=== PATIENT | male | born 1960 | race Caucasian/White ===

== ENCOUNTER 2018-06-12 15:10 | Emergency (ER) | payer OTHER | END 2018-06-12 16:29 | disposition home or self-care (01) | LOC: M ED 15:10 | DX: S09.90XA Unspecified injury of head, initial encounter (principal); W22.8XXA Striking against or struck by other objects, initial encounter; Y92.89 Other specified places as the place of occurrence of the external cause; Y99.0 Civilian activity done for income or pay; R11.0 Nausea; R42 Dizziness and giddiness; E78.5 Hyperlipidemia, unspecified; K57.92 Diverticulitis of intestine, part unspecified, without perforation or abscess without bleeding; Z79.899 Other long term (current) drug therapy; Z79.84 Long term (current) use of oral hypoglycemic drugs | CPT/HCPCS: 70450 ==

== ENCOUNTER → 2018-12-25 | Outpatient (CLI) | payer OTHER ==
[~2018-12-25] MED LIST: ACET65TA OR; ASPI81TA63 OR; IBUP80TA; LIPI80TA; METF-877; SIMV5TAB2 OR; [UNRECOGNIZED DRUG - OTHER]
--- NOTE | 2018-12-25 15:14 | REP ---
PET/CT: History: Lung nodule. Comparisons: Comparison CT study of the chest is from November 19, 2018. TECHNIQUE: 51 minutes following the intravenous injection of a 9.97 mCi dose of F-18 FDG, three-dimensional PET scintigraphy is acquired from the skull base to the proximal thighs. Triplanar noncontrast CT scanning is acquired through the same anatomic range for attenuation correction, and image registration with scan parameters optimized to minimize radiation exposure to the patient. PET scintigraphy and CT datasets were fused and displayed on a workstation with multiplanar and projection display capability. PET/CT Findings: Head and neck soft tissues are unremarkable. There is no evidence of hilar or mediastinal lucian hypermetabolic uptake. Neither of the two noncalcified pulmonary nodules in the left upper lobe on the recent CT study are showing hypermetabolic uptake. The larger of these shows maximum standard uptake value of 1.1. In the abdomen and pelvis normal hepatic, splenic, gastrointestinal FDG accumulation is seen. No other abnormal hypermetabolic uptake is appreciated. Impression: Negative PET scintigraphy. No abnormal hypermetabolic uptake is seen in either of the two left upper lobe pulmonary nodules. Interval CT followup is advised. Electronically Signed by Luis Bravo MD 12/25/2018 08:33 P
== END ==
LOC: M PLARAD 07:46
PROVIDERS: ATTEND Family Medicine
DX: R91.8 Other nonspecific abnormal finding of lung field (principal); G47.33 Obstructive sleep apnea (adult) (pediatric)
CPT/HCPCS: 78815; A9552

== ENCOUNTER 2020-09-05 09:37 | Emergency (ER) | payer OTHER ==
[~2020-09-05] VITALS: Ht 172.7 cm; Wt 108.8 kg
[2020-09-05] MEDS ORDERED: LISI-898 PO (09:43)
--- OUTSIDE RECORDS SUMMARY | 2020-09-05 09:45 | CCD ---
Author Author [facility] Organization [facility] Address Unknown Phone Unavailable Care Team Providers Care Organic Chemistry Professor Name Role Phone SEARS, A JOSE DO Unavailable Unavailable SEARS, A JOSE DO Unavailable Unavailable SEARS, A JOSE DO Unavailable Unavailable SEARS, A JOSE DO Unavailable Unavailable SEARS, A JOSE DO Unavailable Unavailable SEARS, A JOSE DO Unavailable Unavailable SEARS, A JOSE DO Unavailable Unavailable SEARS, A JOSE DO Unavailable Unavailable SEARS, A JOSE DO Unavailable Unavailable SEARS, A JOSE DO Unavailable Unavailable SEARS, A JOSE DO Unavailable Unavailable SEARS, A JOSE DO Unavailable Unavailable SEARS, A JOSE DO Unavailable Unavailable SEARS, A JOSE DO Unavailable Unavailable SEARS, A JOSE DO Unavailable Unavailable SEARS, A JOSE DO Unavailable Unavailable SEARS, A JOSE DO Unavailable Unavailable SEARS, A JOSE DO Unavailable Unavailable SEARS, A JOSE DO Unavailable Unavailable SEARS, A JOSE DO Unavailable Unavailable SEARS, A JOSE DO Unavailable Unavailable SEARS, A JOSE DO Unavailable Unavailable SEARS, A JOSE DO Unavailable Unavailable SEARS, A JOSE DO Unavailable Unavailable SEARS, A JOSE DO Unavailable Unavailable SEARS, A JOSE DO Unavailable Unavailable SEARS, A JOSE DO Unavailable Unavailable SEARS, A JOSE DO Unavailable Unavailable SEARS, A JOSE DO Unavailable Unavailable SEARS, A JOSE DO Unavailable Unavailable SEARS, A JOSE DO Unavailable Unavailable SEARS, A JOSE DO Unavailable Unavailable SEARS, A JOSE DO Unavailable Unavailable SEARS, A JOSE DO Unavailable Unavailable SEARS, A JOSE DO Unavailable Unavailable SEARS, A JOSE DO Unavailable Unavailable SEARS, A JOSE DO Unavailable Unavailable SEARS, A JOSE DO Unavailable Unavailable SEARS, A JOSE DO Unavailable Unavailable SEARS, A JOSE DO Unavailable Unavailable SEARS, A JOSE DO Unavailable Unavailable SEARS, A JOSE DO Unavailable Unavailable SEARS, A JOSE DO Unavailable Unavailable SEARS, A JOSE DO Unavailable Unavailable SEARS, A JOSE DO Unavailable Unavailable SEARS, A JOSE DO Unavailable Unavailable Atilio, L Rosario CRIMINAL LEGAL ASSISTANT Unavailable Unavailable Atilio, L Rosario CRIMINAL LEGAL ASSISTANT Unavailable Unavailable Atilio, L Rosario CRIMINAL LEGAL ASSISTANT Unavailable Unavailable Atilio, L Rosario CRIMINAL LEGAL ASSISTANT Unavailable Unavailable Atilio, L Rosario CRIMINAL LEGAL ASSISTANT Unavailable Unavailable Atilio, L Rosario CRIMINAL LEGAL ASSISTANT Unavailable Unavailable Atilio, L Rosario CRIMINAL LEGAL ASSISTANT Unavailable Unavailable Atilio, L Rosario CRIMINAL LEGAL ASSISTANT Unavailable Unavailable Atilio, L Rosario CRIMINAL LEGAL ASSISTANT Unavailable Unavailable Atilio, L Rosario CRIMINAL LEGAL ASSISTANT Unavailable Unavailable Atilio, L Rosario CRIMINAL LEGAL ASSISTANT Unavailable Unavailable Atilio, L Rosario CRIMINAL LEGAL ASSISTANT Unavailable Unavailable Atilio, L Rosario CRIMINAL LEGAL ASSISTANT Unavailable Unavailable Atilio, L Rosario CRIMINAL LEGAL ASSISTANT Unavailable Unavailable Atilio, L Rosario CRIMINAL LEGAL ASSISTANT Unavailable Unavailable Atilio, L Rosario CRIMINAL LEGAL ASSISTANT Unavailable Unavailable Atilio, L Rosario CRIMINAL LEGAL ASSISTANT Unavailable Unavailable Atilio, L Rosario CRIMINAL LEGAL ASSISTANT Unavailable Unavailable Atilio, L Rosario CRIMINAL LEGAL ASSISTANT Unavailable Unavailable Atilio, L Rosario CRIMINAL LEGAL ASSISTANT Unavailable Unavailable Atilio, L Rosario CRIMINAL LEGAL ASSISTANT Unavailable Unavailable Atilio, L Rosario CRIMINAL LEGAL ASSISTANT Unavailable Unavailable Re-disclosure Warning The records that you are about to access may contain information from federally-assisted alcohol or drug abuse programs. If such information is present, then the following federally mandated warning applies: This information has been disclosed to you from records protected by federal confidentiality rules (42 CFR part 2). The federal rules prohibit you from making any further disclosure of this information unless further disclosure is expressly permitted by the written consent of the person to whom it pertains or as otherwise permitted by 42 CFR part 2. A general authorization for the release of medical or other information is NOT sufficient for this purpose. The Federal rules restrict any use of the information to criminally investigate or prosecute any alcohol or drug abuse patient.The records that you are about to access may contain highly sensitive health information, the redisclosure of which is protected by Article 27-F of the [facility] Public Health law. If you continue you may have access to information: Regarding HIV / AIDS; Provided by facilities licensed or operated by the [facility] Office of Mental Health; or Provided by the [facility] Office for People With Developmental Disabilities. If such information is present, then the following [facility] mandated warning applies: This information has been disclosed to you from confidential records which are protected by state law. State law prohibits you from making any further disclosure of this information without the specific written consent of the person to whom it pertains, or as otherwise permitted by law. Any unauthorized further disclosure in violation of state law may result in a fine or shelter sentence or both. A general authorization for the release of medical or other information is NOT sufficient authorization for further disc losure. Family History Family Member Name Family Member Gender Family Member Status Date o f Status Description Data Source(s) Unknown Unknown Problem [facility] ([facility]) Encounters Encounter Providers Location Date Indications Data Source(s ) Outpatient Referrer: Rosario Trimble NP 10/21/2019 09:23:00 AM EDT [facility] Outpatient Referrer: Rosario Trimble NP 09/23/2019 03:35:00 PM EDT [facility] Outpatient Referrer: JOSE ROSE DO 09/23/2019 03:26:00 PM EDT [facility] Insurance Providers Payer name Policy type / Coverage type Policy ID Covered alliance party ID Covered alliance party's relationship to andrew Policy Andrew Plan Information EAST HUMANA SP HUMANA [place] O [id number] S [place] DEPT [place] LAB[place] SP Prime Commercial [id number] Self [id number] (2018) Commercial [id number] Self EAST HUMANA [id number] SP [id number] [place] DEPT [place] LAB[place] SP [place] DEPART [place] LABOR O [id number] S [id number] [place] SP [facility] Federal Service Commercial Self [place] [place] P [id number] S [id number] Results ID Date Data Source [id number] 10/27/2019 12:00:00 AM EDT [facility] Rosario Trimble Anp Rnnp Patient Name: ODETTE [id number] Date of : 1960[place] [address] Date of Exam: 10/27/2019#: Fax: [phone] EXAM: CT THORAX WITHOUT CONTRASTCLINICAL INFORMATION: Followup lung nodules.Comparison multiples, the latest 05/27/2019.[address] low dose helical CT scanning was obtained throughout the thoraxwithout intravenous contrast along with sagittal and coronalreconstructions.The mediastinum and pulmonary kvng are unchanged. There is no evidence ofa mass or adenopathy. The imaged upper abdomen now shows diffuse lowdensity throughout the hepatic parenchyma consistent with fattyinfiltration. There are otherwise no significant changes. The imagedosseous structures are unchanged. There are no pleural or pericardialeffusions.Evaluation of the lung trinidad again shows numerable nodules, all appearstable, and the largest again seen in the lingula measuring 1.1 cm. Thesurface of this nodule has not changed significantly. No definite newabnormal nodules, masses, or opacities have developed.IMPRESSION:1. Stable lung trinidad as described above. According to the revisedFleischner Society criteria, the nodules can now be categorized as Category2 nodules, however, that particularly is in regards to nodules measuringless than a centimeter. There is no revised Fleischner Society criteria indown grading nodules over a centimeter in size. The fact that the noduleshave remained stable particularly the 1.1 cm sized nodule in the lingula,is reassuring, however, I will recommend an additional three monthfollowup.2. There is fatty infiltration of the liver.Accredited by the [employer] in [place] Sheets/Juan solis for referring ODETTE GÓMEZ to our office. Electronically Signed - KHUSHBU NAGEL DO 10/27/19 15:32 Name Value Range Interpretation Code Description Data Julia rce(s) Supporting Document(s) ID Date Data Source [id number] 10/02/2019 10:50:00 AM EDT [facility] Name Value Range Interpretation Code Description Data Julia rce(s) Supporting Document(s) SARS CORONAVIRUS 2 RNA [facility] This lab was ordered by [facility] Laboratory and reported by [facility]. Procedure
--- OUTSIDE RECORDS SUMMARY | 2020-09-05 10:27 | CCD ---
Author Author [facility] Organization [facility] Address Unknown Phone Unavailable Care Team Providers Care Filler Block Inserter Remover Name Role Phone SEARS, A JOSE DO [...] A JOSE DO Unavailable Unavailable SEARS, A JSOE DO Unavailable Unavailable SEARS, A JOSE DO [...] JOSE DO Unavailable Unavailable Atilio, L Rosario GRAPHIC DESIGN PROFESSOR Unavailable Unavailable Atilio, L Rosario GRAPHIC DESIGN PROFESSOR Unavailable Unavailable Atilio, L Rosario GRAPHIC DESIGN PROFESSOR Unavailable Unavailable Atilio, L Rosario GRAPHIC DESIGN PROFESSOR Unavailable Unavailable Atilio, L Rosario GRAPHIC DESIGN PROFESSOR Unavailable Unavailable Atilio, L Rosario GRAPHIC DESIGN PROFESSOR Unavailable Unavailable Atilio, L Rosario GRAPHIC DESIGN PROFESSOR Unavailable Unavailable Atilio, L Rosario GRAPHIC DESIGN PROFESSOR Unavailable Unavailable Atilio, L Rosario GRAPHIC DESIGN PROFESSOR Unavailable Unavailable Atilio, L Rosario GRAPHIC DESIGN PROFESSOR Unavailable Unavailable Atilio, L Rosario GRAPHIC DESIGN PROFESSOR Unavailable Unavailable Atilio, L Rosario GRAPHIC DESIGN PROFESSOR Unavailable Unavailable Atilio, L Rosario GRAPHIC DESIGN PROFESSOR Unavailable Unavailable Atilio, L Rosario GRAPHIC DESIGN PROFESSOR Unavailable Unavailable Atilio, L Rosario GRAPHIC DESIGN PROFESSOR Unavailable Unavailable Atilio, L Rosario GRAPHIC DESIGN PROFESSOR Unavailable Unavailable Atilio, L Rosario GRAPHIC DESIGN PROFESSOR Unavailable Unavailable Atilio, L Rosario GRAPHIC DESIGN PROFESSOR Unavailable Unavailable Atilio, L Rosario GRAPHIC DESIGN PROFESSOR Unavailable Unavailable Atilio, L Rosario GRAPHIC DESIGN PROFESSOR Unavailable Unavailable Atilio, L Rosario GRAPHIC DESIGN PROFESSOR Unavailable Unavailable Atilio, L Rosario GRAPHIC DESIGN PROFESSOR Unavailable Unavailable Re-disclosure Warning The records that [...] is protected by Article 27-F of the [facility] Public Health law. If you continue you may have access to information: Regarding HIV / AIDS; Provided by facilities licensed or operated by the [facility] Office of Mental Health; or Provided by the [facility] Office for People With Developmental Disabilities. If such information is present, then the following [facility] mandated warning applies: This information has been [...] law may result in a fine or fpc sentence or both. A general authorization for the release of medical or other information is NOT sufficient authorization for further disc losure. Family History Family Member Name Family Member Gender Family Member Status Date o f Status Description Data Source(s) Unknown Unknown Problem [facility] ([facility]) Encounters Encounter Providers Location Date Indications Data Source(s ) Outpatient Referrer: Rosario Trimble NP 10/21/2019 09:23:00 AM EDT [facility] Outpatient Referrer: Rosario Trimble NP 09/23/2019 03:35:00 PM EDT [facility] Outpatient Referrer: JOSE ROSE DO 09/23/2019 03:26:00 PM EDT [facility] Insurance Providers Payer name Policy type / Coverage type Policy ID Covered libertarian ID Covered libertarian's relationship to andrew Policy Andrew Plan Information EAST HUMANA SP [id number] HUMANA [place]AST [place] O [id number] S [place] DEPT OF LAB[place] SP [id number] Prime Commercial Self [id number] (2018) Commercial [id number] Self EAST HUMANA [id number] SP [place] DEPT OF LABOR SP [place] DEPART OF LABOR O [id number] S [id number] [facility] [facility] Federal Service Commercial Self [place] P [id number] S [id number] Results ID Date Data Source [id number] 10/27/2019 12:00:00 AM EDT [facility] Rosario Trimble Anp Rnnp Patient Name: ODETTE [id number] Date of : 1960[place] [address] Date of Exam: 10/27/2019#: Fax: [phone] EXAM: [...] fatty infiltration of the liver.Accredited by the [employer] in [place] Sheets/Juan you for referring ODETTE GÓMEZ to our office. Electronically Signed - KHUSHBU NAGEL DO 10/27/19 15:32 Name Value Range Interpretation Code Description Data Julia rce(s) Supporting Document(s) ID Date Data Source [id number] 10/02/2019 10:50:00 AM EDT [facility] Name Value Range Interpretation Code Description Data Julia rce(s) Supporting Document(s) SARS CORONAVIRUS 2 RNA [facility] This lab was ordered by [facility] Laboratory and reported by [facility]. Procedure
[2020-09-05] MEDS ORDERED: NS 1,000 ML IV SCH (10:29)
[2020-09-05] MEDS ORDERED: KETOROLAC 30 MG/ML 1ML VIAL IV ONE (10:30)
[2020-09-05] MEDS ORDERED: TAMSULOSIN 0.4 MG CAP PO ONE (10:45)
[2020-09-05 10:50] LABS: BASO # 0.1 10^3/uL (0.0-0.2); BASO % 0.8 % (0.0-1.0); EOS # 0.1 10^3/uL (0.0-0.5); EOS % 1.8 % (0.0-3.0); HEMATOCRIT 46.7 % (42.0-52.0); HEMOGLOBIN 15.5 g/dl (13.5-17.5); LYMPH # 2.2 10^3/uL (1.5-5.0); LYMPH % 30.4 % (24.0-44.0); MEAN CORPUSCULAR HGB CONC 33.2 g/dl (32.0-36.5); MEAN CORPUSCULAR VOLUME 93.4 fl (80.0-96.0); MONO # 0.6 10^3/uL (0.0-0.8); MONO % 7.6 % (2.0-8.0); NEUTROPHILS # 4.4 10^3/uL (1.5-8.5); NEUTROPHILS % 59.1 % (36.0-66.0); PLATELET COUNT, AUTOMATED 211 10^3/uL (150-450); WHITE BLOOD COUNT 7.4 10^3/uL (4.0-10.0)
[2020-09-05 11:09] LABS: APPEARANCE, URINE CLEAR (CLEAR); BACTERIA, URINE AUTO NEGATIVE (NEGATIVE); BILIRUBIN, URINE AUTO NEGATIVE (NEGATIVE); BLOOD, URINE BLOOD NEGATIVE (NEGATIVE); COLOR, URINE YELLOW (YELLOW); GLUCOSE, URINE (UA) AUTO NEGATIVE (NEGATIVE); KETONE, URINE AUTO NEGATIVE (NEGATIVE); LEUKOCYTE ESTERASE, URINE AUTO NEGATIVE (NEGATIVE); MUCUS, URINE SMALL (NEGATIVE); NITRITE, URINE AUTO NEGATIVE (NEGATIVE); PROTEIN, URINE AUTO NEGATIVE (NEGATIVE); RBC, URINE AUTO 4 /HPF (0-3); SQUAMOUS EPITHELIAL CELL UR AU 2 /HPF (0-6); UROBILINOGEN, URINE AUTO 0.2 mg/dL (0.0-2.0); WBC, URINE AUTO 2 /HPF (0-3)
[2020-09-05 11:15] LABS: ALBUMIN 4.2 GM/DL (3.2-5.2); BILIRUBIN,DIRECT 0.2 MG/DL (0.0-0.2); BILIRUBIN,TOTAL 0.6 MG/DL (0.2-1.0); TOTAL PROTEIN 7.6 GM/DL (6.4-8.2)
--- NOTE | 2020-09-05 11:59 | REP ---
INDICATION: Rt flank pain. COMPARISON: Noncontrast CT 03/08/2013 TECHNIQUE: Noncontrast CT with coronal and sagittal reconstructions provided FINDINGS: CT abdomen: Lung bases show minor dependent atelectatic change but no effusion, acute infiltrate or pleural thickening. In the lingula on image 3 is a 10 mm nodule anteriorly near the left heart border and unchanged from CT chest of 11/19/2018 and negative on a PET-CT on 12/25/2018. Mild fatty infiltration of the liver as seen on the previous study representing stable fatty liver change. There is no hepatosplenomegaly, focal hepatic or splenic mass nor intrahepatic biliary dilatation. Stomach shows no hiatal hernia and has retained food gallbladder without calcified stone or mass pancreas unremarkable the aorta has some calcifications but no aneurysm no periaortic, retroperitoneal or mesenteric pathologic sized lymphadenopathy. Diverticulosis of the left colon without diverticulitis in the abdomen proper. Small bowel loops grossly intact. Adrenal glands normal. Left kidney shows a tiny calcification appear mid in the interpolar region about 2 mm. No hydronephrosis, cyst or solid mass. There is an upper pole 1 mm pyramidal calcification laterally and another medially. No hydroureter or ureteral stone on the left. The right kidney shows a 3 mm stone in the lower pole calyx centrally and then a 3 mm stone anteriorly in the at right lower pole. There is mild hydronephrosis and hydroureter with a 5.5 mm stone at the level of the acetabular roof on the right. Below this, ureter has a normal course to the bladder and is without a stone. There are multiple pelvic phleboliths seen. No ascites, perforation or free air in the abdomen. Bone windows show marginal osteophytes throughout the thoracic spine, minimal degenerative changes in the lumbar spine. No compression deformity or destructive lesion. Visualized ribs were intact. CT pelvis: The bony sacrum, iliac bones and hips are without focal lesion SI joints and hips do show some degenerative change with spurring. No destructive lesion or fracture. Distal ureters and bladder without stone the bladder is only partially filled and cannot be well evaluated. There is a urachal remnant seen up to the level of the umbilicus without a fluid collection or distention or mass. Diverticulosis distal left colon and sigmoid without diverticulitis. Appendix seen and normal. Prostate calcifications seen without gross prostate enlargement no ventral or inguinal hernia, inguinal or pelvic lymphadenopathy noted. IMPRESSION: 1. Mild right-sided hydronephrosis and hydroureter with a 5.5 mm stone in the right ureter at the level of the acetabular roof. Few small calculi within the right kidney and nonobstructing pyramidal calculi in the left kidney in the 1-2 mm range. No left hydronephrosis, hydroureter or ureteral stone. No bladder stone. The bladder does show collapse but a urachal remnant up to the umbilical region as an anatomic variant and not distended with urine or stone/mass. 2. Fatty infiltration of the liver. No other hepatic, splenic, pancreatic, gallbladder, adrenal, stomach or small bowel abnormality. 3. Left colonic and sigmoid diverticulosis without diverticulitis or colitis no stricture or mass pending normal. No ascites or free air. <Electronically signed by Gray Joseph > 09/05/20 [id number]
[2020-09-05] MEDS ORDERED: CEPH500C PO (12:15)
[2020-09-05] MEDS ORDERED: OXYC1TAB23 PO (12:19)
[2020-09-05] MEDS ORDERED: KETO10TAB PO (12:19)
[2020-09-05] MEDS ORDERED: ZOFR4TAB16 PO (12:19)
[2020-09-05] MEDS ORDERED: TAMS1CAP17 PO (12:19)
[2020-09-05] MEDS ORDERED: PERC5TAB12 PO (12:39)
[2020-09-05 13:02] VITALS: BP 131/80
== END 2020-09-05 13:07 | disposition home or self-care (01) ==
LOC: M ED 09:37
DX: N20.0 Calculus of kidney (principal); E11.9 Type 2 diabetes mellitus without complications; K57.30 Diverticulosis of large intestine without perforation or abscess without bleeding; K76.0 Fatty (change of) liver, not elsewhere classified
CPT/HCPCS: 36415; 74176; 80047; 80076; 81001; 83690; 85025; 99284; J1885

== ENCOUNTER → 2020-09-21 | Outpatient (REF) | payer OTHER ==
[~2020-09-21] MED LIST changes: +CEPH500C PO; +KETO10TAB PO; +LISI-898 PO; +OXYC1TAB23 PO; +PERC5TAB12 PO; +TAMS1CAP17 PO; +ZOFR4TAB16 PO
== END ==
LOC: M LAB REF 18:57
PROVIDERS: ATTEND Dermatology
DX: L90.5 Scar conditions and fibrosis of skin (principal)

== ENCOUNTER → 2020-09-30 | Outpatient (CLI) | payer OTHER ==
--- NOTE | 2020-09-30 08:01 | REP ---
INDICATION: URETERAL CALCULUS COMPARISON: 09/05/2020 TECHNIQUE: Axial noncontrast images from the lung bases to the pubic symphysis with coronal and sagittal reformations. This CT examination was performed using the following dose reduction techniques: Automated exposure control, adjustment of mA and/or kv according to the patient's size, and use of iterative reconstruction technique. FINDINGS: Right kidney demonstrates few small nonobstructing calculi measuring 2-3 mm without acute perinephric stranding, hydroureteronephrosis, or obstructing ureteral calculus. The previously identified obstructing calculus has resolved. Left kidney and collecting system is unremarkable by noncontrast evaluation. Liver, spleen, pancreas, gallbladder, and bilateral adrenal glands are normal. The enteric system is without obstruction or acute inflammatory process. Normal terminal ileum and appendix identified in the right lower quadrant. Colonic and sigmoid diverticula noted without acute diverticulitis. Pelvis demonstrates normal bladder and age-appropriate prostate/seminal vesicles. Small fat containing inguinal hernias noted. No ascites. No free air. No adenopathy. Abdominal aorta without aneurysm. Musculoskeletal structures demonstrate age-related changes without acute osseous abnormality. Stable 10 mm nodule in the lingula is unchanged from multiple prior examinations. IMPRESSION: 1. Nonobstructing right renal calculi. Previously noted obstructing calculus has resolved. 2. Diverticulosis. <Electronically signed by Pancho Clayton > 09/30/20 [id number]
== END ==
LOC: M RAD 07:03
PROVIDERS: ATTEND Nurse Practitioner Women's Health
DX: N20.0 Calculus of kidney (principal); K57.90 Diverticulosis of intestine, part unspecified, without perforation or abscess without bleeding

== ENCOUNTER → 2021-05-04 | Outpatient (CLI) | payer OTHER ==
--- NOTE | 2021-05-04 09:44 | REP ---
INDICATION: LUNG NODULES COMPARISON: None TECHNIQUE: Axial noncontrast images from the thoracic inlet to the upper abdomen with coronal and sagittal reformations. This CT examination was performed using the following dose reduction techniques: Automated exposure control, adjustment of mA and/or kv according to the patient's size, and use of iterative reconstruction technique. FINDINGS: Four noncalcified nodular densities are identified within the left upper lobe measuring between 3 mm and 11 mm. Remainder of lung trinidad are well aerated and essentially clear. No further consolidation, nodule or mass. No effusion. No pneumothorax. No obvious adenopathy. Atherosclerotic changes to the thoracic aorta and coronary arteries noted without aortic aneurysm or cardiomegaly. No pericardial effusion. Surrounding musculoskeletal structures without acute osseous abnormality. Limited upper abdomen demonstrates normal bilateral adrenal glands and hepatosteatosis. IMPRESSION: Four noncalcified nodules in the left upper lobe up to 11 mm. The largest lesion measuring 11 mm at the lingula remains stable when compared with lung base images from abdominal CT dated 09/05/2020. Consider 6 month initial follow-up examination to confirm stability and chronicity. <Electronically signed by Pancho Clayton > 05/04/21 [id number]
== END ==
LOC: M PLAIMG 08:35
PROVIDERS: ATTEND Emergency Medicine
DX: R91.8 Other nonspecific abnormal finding of lung field (principal)

== ENCOUNTER → 2021-06-22 | Outpatient (CLI) | payer OTHER ==
[~2021-06-22] MED LIST changes: -LISI-898 PO; +LISI5TAB11 PO
== END ==
LOC: M CARPUL 13:42
PROVIDERS: ATTEND Nurse Practitioner Adult Health
DX: R05.9 Cough, unspecified (principal)

== ENCOUNTER → 2021-07-21 | Outpatient (REF) ==
[~2021-07-21] MED LIST changes: +LISI-898 PO; -LISI5TAB11 PO
== END ==
LOC: M LABSMTC 09:43
PROVIDERS: ATTEND Pediatrics
DX: Z11.52 Encounter for screening for COVID-19 (principal)

== ENCOUNTER → 2021-09-12 | Outpatient (CLI) | payer OTHER ==
[~2021-09-12] MED LIST changes: -LISI-898 PO; +LISI5TAB11 PO
== END ==
LOC: M PLARAD 14:04
PROVIDERS: ATTEND Internal Medicine Pulmonary Disease
DX: R91.8 Other nonspecific abnormal finding of lung field (principal)
CPT/HCPCS: 78815; A9552

== ENCOUNTER 2022-05-15 07:19 | Emergency (ER) | payer OTHER ==
[~2022-05-15] VITALS: Ht 172.7 cm; Wt 96.9 kg
[2022-05-15 07:55] LABS: BASO % 0.5 % (0.0-1.0); EOS # 0.2 10^3/uL (0.0-0.5); HEMATOCRIT 47.7 % (42.0-52.0); LYMPH # 1.9 10^3/uL (1.5-5.0); LYMPH % 22.7 % (24.0-44.0); MEAN CORPUSCULAR HEMOGLOBIN 31.6 pg (27.0-33.0); MEAN CORPUSCULAR HGB CONC 33.5 g/dl (32.0-36.5); MEAN CORPUSCULAR VOLUME 94.1 fl (80.0-96.0); MONO # 0.8 10^3/uL (0.0-0.8); MONO % 8.9 % (2.0-8.0); NEUTROPHILS # 5.5 10^3/uL (1.5-8.5); NEUTROPHILS % 65.7 % (36.0-66.0); PLATELET COUNT, AUTOMATED 193 10^3/uL (150-450); RED BLOOD COUNT 5.07 10^6/uL (4.30-6.10); WHITE BLOOD COUNT 8.4 10^3/uL (4.0-10.0)
[2022-05-15 08:16] LABS: ALBUMIN 4.1 GM/DL (3.2-5.2); ALT/SGPT 26 U/L (12-78); BILIRUBIN,DIRECT 0.2 MG/DL (0.0-0.2); BILIRUBIN,TOTAL 0.7 MG/DL (0.2-1.0); BLOOD UREA NITROGEN 19 MG/DL (7-18); CALCIUM LEVEL 9.7 MG/DL (8.5-10.1); CARBON DIOXIDE LEVEL 28 MEQ/L (21-32); CHLORIDE LEVEL 105 MEQ/L (98-107); CREATININE FOR GFR 1.14 MG/DL (0.70-1.30); GLOMERULAR FILTRATION RATE > 60.0 (>56); GLUCOSE, FASTING 127 MG/DL (70-100); POTASSIUM SERUM 4.3 MEQ/L (3.5-5.1); SODIUM LEVEL 138 MEQ/L (136-145); TOTAL PROTEIN 7.7 GM/DL (6.4-8.2)
[2022-05-15] MEDS ORDERED: KETOROLAC 30 MG/ML 1ML VIAL IV ONE (09:20)
[2022-05-15] MEDS ORDERED: NS 1,000 ML IV ONE (09:20)
[2022-05-15] MEDS ORDERED: TAMSULOSIN 0.4 MG CAP PO ONE (09:20)
[2022-05-15 10:08] VITALS: BP 128/75
[2022-05-15] MEDS ORDERED: FLOM0.4C39 PO (10:31)
[2022-05-15] MEDS ORDERED: PERC5TAB12 PO (10:31)
== END 2022-05-15 11:15 | disposition home or self-care (01) ==
LOC: M ED 07:19
DX: N13.2 Hydronephrosis with renal and ureteral calculous obstruction (principal); K57.30 Diverticulosis of large intestine without perforation or abscess without bleeding; E11.9 Type 2 diabetes mellitus without complications; Z79.899 Other long term (current) drug therapy; Z79.84 Long term (current) use of oral hypoglycemic drugs
CPT/HCPCS: 74176; 80048; 80076; 81000; 85025; 87086; 96361; 96374; 99284; J1885

== ENCOUNTER 2023-08-27 08:03 | Emergency (ER) | payer OTHER ==
[~2023-08-27] VITALS: Ht 172.7 cm; Wt 109.1 kg
[~2023-08-27 08:03] MED LIST changes: +FLOM0.4C39 PO
[2023-08-27] MEDS: ONDANSETRON 4MG 2ML VIAL IV ONE (09:13)
[2023-08-27] MEDS: NS 1,000 ML IV ONE (09:13)
[2023-08-27] MEDS: KETOROLAC 30 MG/ML 1ML VIAL IV ONE ×2 (09:15→12:14)
[2023-08-27 09:36] LABS: BASO % 0.3 % (0.0-1.0); EOS # 0.2 10^3/uL (0.0-0.5); EOS % 1.7 % (0.0-3.0); HEMOGLOBIN 15.8 g/dl (13.5-17.5); LYMPH # 1.3 10^3/uL (1.5-5.0); LYMPH % 14.7 % (24.0-44.0); MEAN CORPUSCULAR HGB CONC 33.6 g/dl (32.0-36.5); MEAN CORPUSCULAR VOLUME 92.3 fl (80.0-96.0); MONO # 0.6 10^3/uL (0.0-0.8); NEUTROPHILS # 6.7 10^3/uL (1.5-8.5); NEUTROPHILS % 75.8 % (36.0-66.0); PLATELET COUNT, AUTOMATED 180 10^3/uL (150-450); RED BLOOD COUNT 5.09 10^6/uL (4.30-6.10); WHITE BLOOD COUNT 8.9 10^3/uL (4.0-10.0)
[2023-08-27 10:03] LABS: ALBUMIN 3.9 G/DL (3.2-5.2); ALKALINE PHOSPHATASE 79 U/L (46-116); ALT/SGPT 37 U/L (7.0-40); AST/SGOT 40 U/L (<34); BILIRUBIN,DIRECT < 0.1 MG/DL (<0.4); BILIRUBIN,TOTAL 0.5 MG/DL (0.3-1.2); LIPASE 34 U/L (12-53); TOTAL PROTEIN 6.9 G/DL (5.7-8.2)
[2023-08-27] MEDS: TAMSULOSIN 0.4 MG CAP PO ONE (11:14)
[2023-08-27] MEDS ORDERED: FLOM0.4C39 PO (12:01)
[2023-08-27] MEDS ORDERED: KETO10TAB PO (12:01)
[2023-08-27 12:18] VITALS: BP 145/86; TEMP 96.1; O2SAT 93
== END 2023-08-27 12:44 | disposition home or self-care (01) ==
LOC: M ED 08:03
DX: N21.1 Calculus in urethra (principal); N13.30 Unspecified hydronephrosis; E11.9 Type 2 diabetes mellitus without complications; E78.5 Hyperlipidemia, unspecified; K57.92 Diverticulitis of intestine, part unspecified, without perforation or abscess without bleeding; Z87.442 Personal history of urinary calculi; Z79.84 Long term (current) use of oral hypoglycemic drugs; Z79.899 Other long term (current) drug therapy
CPT/HCPCS: 74176; 80047; 80076; 81001; 83690; 84132; 85025; 96361; 96374; 96375; 96376; 99284; J1885; J2405

== ENCOUNTER 2024-07-14 17:06 | Emergency (ER) | payer OTHER ==
[~2024-07-14] VITALS: Ht 172.7 cm; Wt 104.5 kg
[~2024-07-14 17:06] MED LIST changes: +ATOR-398; -LIPI80TA
[2024-07-14] MEDS ORDERED: PANT20TA6 PO (17:23)
[2024-07-14 18:23] LABS: BASO # 0.1 10^3/uL (0.0-0.2); BASO % 0.8 % (0.0-1.0); EOS # 0.1 10^3/uL (0.0-0.5); EOS % 1.6 % (0.0-3.0); HEMATOCRIT 45.1 % (42.0-52.0); HEMOGLOBIN 15.6 g/dl (13.5-17.5); LYMPH # 2.5 10^3/uL (1.5-5.0); LYMPH % 33.8 % (24.0-44.0); MEAN CORPUSCULAR HEMOGLOBIN 31.7 pg (27.0-33.0); MEAN CORPUSCULAR HGB CONC 34.6 g/dl (32.0-36.5); MEAN CORPUSCULAR VOLUME 91.7 fl (80.0-96.0); MONO # 0.6 10^3/uL (0.0-0.8); MONO % 8.4 % (2.0-8.0); NEUTROPHILS % 54.9 % (36.0-66.0); PLATELET COUNT, AUTOMATED 183 10^3/uL (150-450); RED BLOOD COUNT 4.92 10^6/uL (4.30-6.10); WHITE BLOOD COUNT 7.3 10^3/uL (4.0-10.0)
[2024-07-14 18:49] LABS: LIPASE 32 U/L (12-53)
[2024-07-14 18:51] LABS: ALBUMIN 3.6 G/DL (3.2-5.2); ALKALINE PHOSPHATASE 102 U/L (40-129); ALT/SGPT 45 U/L (7.0-40); AST/SGOT 19 U/L (<34); BILIRUBIN,DIRECT < 0.1 MG/DL (<0.4); BILIRUBIN,TOTAL 0.4 MG/DL (0.3-1.2); BLOOD UREA NITROGEN 17 MG/DL (9-23); CARBON DIOXIDE LEVEL 26 MMOL/L (20-31); CHLORIDE LEVEL 105 MMOL/L (98-107); CPK CREATINE PHOSPHOKINASE 155 U/L (46-171); CREATININE FOR GFR 0.76 MG/DL (0.70-1.30); GLOMERULAR FILTRATION RATE > 60.0 (>49); GLUCOSE, FASTING 304 MG/DL (74-106); MB/CK RELATIVE INDEX 1.29 (< OR =4); POTASSIUM SERUM 4.2 MMOL/L (3.5-5.1); SODIUM LEVEL 139 MMOL/L (136-145); TOTAL PROTEIN 6.8 G/DL (5.7-8.2)
[2024-07-14 19:15] LABS: CK-MB VALUE MASS 2.8 NG/ML (<3.6)
[2024-07-14 19:20] LABS: MB/CK RELATIVE INDEX 1.8 (< OR =4)
[2024-07-14] MEDS: methylPREDNISolone 125MG 2ML VIAL IV ONE (19:59)
[2024-07-14] MEDS ORDERED: PRED10TA2 PO (20:00)
[2024-07-14 20:05] VITALS: BP 117/75; TEMP 97.3; O2SAT 92
== END 2024-07-14 20:08 | disposition home or self-care (01) ==
LOC: M ED 17:06
DX: R07.89 Other chest pain (principal); R94.31 Abnormal electrocardiogram [ECG] [EKG]; E11.9 Type 2 diabetes mellitus without complications; E78.5 Hyperlipidemia, unspecified; K21.9 Gastro-esophageal reflux disease without esophagitis; Z79.84 Long term (current) use of oral hypoglycemic drugs; Z79.52 Long term (current) use of systemic steroids; Z79.899 Other long term (current) drug therapy
CPT/HCPCS: 71045; 80048; 80076; 82550; 82553; 83690; 83880; 84484; 85025; 85379; 87486; 87581; 87633; 87798; 93005; 93041; 94760; 96374; 99284; J2919

== ENCOUNTER → 2024-12-03 | Outpatient (CLI) | payer OTHER ==
[~2024-12-03] MED LIST changes: -FLOM0.4C39 PO; +PANT20TA6 PO; +PRED10TA2 PO; +TAMS-18 PO
== END ==
LOC: M RAD 16:41
PROVIDERS: ATTEND Nurse Practitioner Family
DX: K76.0 Fatty (change of) liver, not elsewhere classified (principal); N20.0 Calculus of kidney

== ENCOUNTER 2025-04-28 15:01 | Emergency (ER) | payer OTHER ==
[~2025-04-28] VITALS: Ht 172.7 cm; Wt 107.1 kg
[2025-04-28 17:28] LABS: BASO # 0.1 10^3/uL (0.0-0.2); BASO % 1.0 % (0.0-1.0); EOS # 0.1 10^3/uL (0.0-0.5); EOS % 1.5 % (0.0-3.0); LYMPH # 2.3 10^3/uL (1.5-5.0); LYMPH % 28.5 % (24.0-44.0); MONO # 0.7 10^3/uL (0.0-0.8); MONO % 8.6 % (2.0-8.0); NEUTROPHILS # 4.9 10^3/uL (1.5-8.5); NEUTROPHILS % 60.2 % (36.0-66.0); PLATELET COUNT, AUTOMATED 219 10^3/uL (150-450)
[2025-04-28 17:52] LABS: ALT/SGPT 49 U/L (7.0-40); AST/SGOT 21 U/L (<34); CALCIUM LEVEL 9.6 MG/DL (8.3-10.6); CARBON DIOXIDE LEVEL 26 MMOL/L (20-31); CHLORIDE LEVEL 102 MMOL/L (98-107); CREATININE FOR GFR 0.89 MG/DL (0.70-1.30); GLOMERULAR FILTRATION RATE > 90.0 (>49); POTASSIUM SERUM 4.5 MMOL/L (3.5-5.1); SODIUM LEVEL 139 MMOL/L (136-145)
[2025-04-28 19:45] VITALS: BP 145/78; TEMP 98.8; O2SAT 100
== END 2025-04-28 19:46 | disposition home or self-care (01) ==
LOC: M ED 15:01
DX: E11.65 Type 2 diabetes mellitus with hyperglycemia (principal); E78.5 Hyperlipidemia, unspecified; I10 Essential (primary) hypertension; Z79.84 Long term (current) use of oral hypoglycemic drugs; Z79.52 Long term (current) use of systemic steroids; Z79.899 Other long term (current) drug therapy